=== PATIENT | male | born 1955 | race Caucasian/White ===

== ENCOUNTER 2017-09-08 09:00 | Outpatient (RCR) | payer OTHER | END 2017-09-14 | disposition home or self-care (01) | LOC: PT | DX: M54.6 Pain in thoracic spine (principal); V44.9XXD Unspecified car occupant injured in collision with heavy transport vehicle or bus in traffic accident, subsequent encounter ==

== ENCOUNTER 2017-09-22 08:00 | Outpatient (RCR) | payer OTHER | END 2017-09-22 08:30 | disposition home or self-care (01) | LOC: PT 08:00 | DX: M54.6 Pain in thoracic spine (principal) ==